=== PATIENT | female | born 1965 | race African-American/Black ===

== ENCOUNTER 2021-03-01 14:36 | Emergency (ER) | payer MEDICARE, MEDICAID, SELFPAY ==
[2021-03-01 14:48] VITALS: BP 183/94; PULSE 80; RESP 18; TEMP 36.5; O2SAT 95
[2021-03-01 19:47] VITALS: BP 200/99; PULSE 72; RESP 20; O2SAT 97
--- NOTE | 2021-03-01 20:16 | ED.GENADULT ---
HPI - General Adult General Chief complaint: GI Bleed Stated complaint: rectal bleeding Time Seen by Provider: 03/01/21 19:43 History of Present Illness HPI narrative: Patient is a 55-year-old female who presents ER with hemorrhoids. Developed over the last 2 days. Has had some intermittent bleeding. Tender to touch. Has had no constipation or straining. Takes Linzess which gives her loose stools. Patient was diagnosed with COVID last week. She has been using Tucks pads as well as Preparation H and sits a lot of baths. Causes pain with walking. Review of Systems Review of Systems: All systems reviewed & are unremarkable except as noted in HPI and below Constitutional: Constitutional: Denies fever(s) and Denies weakness Cardiovascular: Cardiovascular: Denies chest pain and Denies radiating jaw, neck or arm pain Respiratory: Respiratory: Denies cough, Denies dyspnea and Denies wheezing Gastrointestinal: Gastrointestinal: Denies abdominal pain, Denies constipation, Reports diarrhea, Denies nausea and Denies vomiting Comments: Hemorrhoids PMFSH Past Medical History Medical History (Updated 03/01/21 @ 20:22 by Sen Peralta MD) Angina at rest Diabetes Hypertension Irritable bowel syndrome Surgical History Surgical History (Updated 03/01/21 @ 20:20 by Sen Peralta MD) History of cholecystectomy S/P aortic dissection repair Social History Social History (Updated 03/01/21 @ 20:20 by Sen Peralta MD) Smoking status: Light tobacco smoker Exam Narrative: GENERAL: Well-appearing, well-nourished, and in no acute distress. HEAD: Normocephalic, atraumatic. HEART: Regular rate and rhythm. Normal peripheral pulses. ABDOMEN: Soft, nontender, nondistended. Multiple nonthrombosed external hemorrhoids however there is one hemorrhoid with evidence of recent bleeding where the superficial skin is broken and clot is present, 6 o'clock position left lateral decubitus position. No surrounding infection. EXTREMITIES: Normal range of motion. No edema. SKIN: Warm, dry, no rash. NEURO: Alert and oriented x3. PSYCH: Normal mood and affect. Course Course Emergency Course: Gave patient encouragement that she was performing the right therapies. Hemorrhoid not ready for incision. We will give surgical referral and prescribe Anusol for home. Vital Signs Vital signs: Vital Signs Temperature 97.7 F 03/01/21 14:48 Pulse Rate 80 03/01/21 14:48 Respiratory Rate 18 03/01/21 14:48 Blood Pressure 183/94 H 03/01/21 14:48 Pulse Oximetry 95 03/01/21 14:48 Temperature 97.7 F 03/01/21 14:48 Pulse Rate 72 03/01/21 19:47 Respiratory Rate 20 03/01/21 19:47 Blood Pressure 200/99 H 03/01/21 19:47 Pulse Oximetry 97 03/01/21 19:47 Medical Decision Making Vital Signs Vital Signs: Vital Signs Temperature 97.7 F 03/01/21 14:48 Pulse Rate 80 03/01/21 14:48 Respiratory Rate 18 03/01/21 14:48 Blood Pressure 183/94 H 03/01/21 14:48 Pulse Oximetry 95 03/01/21 14:48 Temperature 97.7 F 03/01/21 14:48 Pulse Rate 72 03/01/21 19:47 Respiratory Rate 20 03/01/21 19:47 Blood Pressure 200/99 H 03/01/21 19:47 Pulse Oximetry 97 03/01/21 19:47 Discharge Plan Discharge Clinical Impression: Hemorrhoids Patient Disposition: Home, Self-Care Condition: Stable Instructions: Hemorrhoids (ED) Additional Instructions: Return to the ER if you have worsening pain, cannot keep down food or water, you lose consciousness, you have additional concerns. Prescriptions: New hydrocortisone [Anusol-HC] 2.5 % cream with perineal applicator 1 applic RECTAL DAILY PRN (Reason: hemorrhoids) Qty: 30 RF: 0 Follow-up/Referrals: Yoseph Hickman MD [Physician] - 1 Week UNKNOWN,DOCTOR [Primary Care Provider] -
[2021-03-01 20:51] VITALS: BP 180/68; PULSE 76; RESP 22; O2SAT 99
== END 2021-03-01 20:52 | disposition home or self-care (01) ==
LOC: ANHED 20:25
PROVIDERS: Emergency Provider Emergency Medicine
DX: K64.4 Residual hemorrhoidal skin tags (principal); E11.9 Type 2 diabetes mellitus without complications; I10 Essential (primary) hypertension; K58.9 Irritable bowel syndrome, unspecified; F17.200 Nicotine dependence, unspecified, uncomplicated; Z86.16 Personal history of COVID-19
CPT/HCPCS: 99283